=== PATIENT | male | born 1995 | race Caucasian/White ===

== ENCOUNTER 2020-05-12 11:19 | Outpatient (CLI) | payer OTHER ==
[2020-05-12 12:29] LABS: BASOPHILS # (AUTO) 0.1 K/uL (0.0-0.2); BASOPHILS % (AUTO) 0.6 % (0.0-2.0); EOSINOPHILS # (AUTO) 0.4 K/uL (0.0-0.4); EOSINOPHILS % (AUTO) 3.6 % (0.0-4.0); HEMATOCRIT 52.5 % (36-54); HEMOGLOBIN 18.3 g/dL (14.0-18.0); LYMPHOCYTES # (AUTO) 2.2 K/uL (1.0-5.5); LYMPHOCYTES % (AUTO) 20.6 % (20.5-51.5); MEAN CORPUSCULAR HEMOGLOBIN 31 pg (27-31); MEAN CORPUSCULAR HGB CONC 35 % (32-36); MEAN CORPUSCULAR VOLUME 88 fL (79.0-98.0); MONOCYTES # (AUTO) 0.5 K/uL (0.0-1.0); MONOCYTES % (AUTO) 4.9 % (1.7-9.3); NEUTROPHILS # (AUTO) 7.6 K/uL (1.8-7.7); NEUTROPHILS % (AUTO) 70.3 % (40.0-70.0); PLATELET COUNT (AUTO) 238 K/uL (130-430); RED BLOOD CELL COUNT(AUTO) 5.96 MIL/uL (4.2-6.2); RED CELL DISTRIBUTION WIDTH 13.1 % (9.0-15.0); WHITE BLOOD COUNT (AUTO) 10.8 K/uL (4.8-10.8)
[2020-05-12 13:05] LABS: ALBUMIN 4.6 g/dL (3.4-4.8); CALCIUM 9.7 mg/dL (8.4-11.0); CREATININE 1.08 mg/dL (0.55-1.30); POTASSIUM 4.1 mmol/L (3.5-5.1); THYROID STIMULATING HORMONE 1.26 uIu/mL (0.34-4.82); TOTAL BILIRUBIN 0.6 mg/dL (0.0-1.0)
[2020-05-13 08:06] LABS: HEMOGLOBIN A1C 5.3 % (4.8-5.6)
== END 2020-05-12 20:10 | disposition home or self-care (01) ==
LOC: SLB 11:19
PROVIDERS: ATTEND Internal Medicine
DX: Z00.00 Encounter for general adult medical examination without abnormal findings (principal)
CPT/HCPCS: 36415; 80053; 80061; 82306; 83036; 84443-TC; 85025

== ENCOUNTER 2020-08-08 10:49 | Emergency (ER) | payer OTHER, SELFPAY ==
[~2020-08-08] VITALS: Ht 182.9 cm; Wt 104.3 kg
[2020-08-08 11:08] VITALS: BP_SYST 137
--- NOTE | 2020-08-08 11:13 | NUR ---
Patient triaged and placed in ER tent. VSS and patient appears in no acute distress at this time. Awaiting available bed, and MD notified of need for MSE.
--- NOTE | 2020-08-08 11:14 | NUR ---
Patient came from home complaining of headache,abdominal pain,diarrhea,dry cough,and SOB. Vitals are WNL, when asked for painscale he reported none.
--- NOTE | 2020-08-08 11:35 | NUR ---
ER Dr. Lance at bedside examining patient.
[2020-08-08 14:00] VITALS: BP_SYST 137
--- NOTE | 2020-08-08 14:00 | NUR ---
Patient given written and verbal discharge instructions and verbalizes understanding. ER MD discussed with patient the results and treatment provided. Patient in stable condition. ID arm band removed. Patient educated on pain management and to follow up with PMD. Pain Scale 0/10. Opportunity for questions provided and answered. Medication side effect fact sheet provided.
== END 2020-08-08 14:00 | disposition home or self-care (01) ==
LOC: SED 10:49
DX: R05 Cough (principal); R51.9 Headache, unspecified; Z20.828 Contact with and (suspected) exposure to other viral communicable diseases
CPT/HCPCS: 71045; 99284; U0003; C9803

== ENCOUNTER 2021-03-31 12:24 | Outpatient (CLI) | payer OTHER ==
[2021-03-31 12:55] LABS: BILIRUBIN,URINE NEGATIVE (NEGATIVE); BLOOD, URINE NEGATIVE (NEGATIVE); CLARITY/URINE CLEAR (CLEAR); COLOR,URINE YELLOW (YELLOW); GLUCOSE,URINE NEGATIVE (NEGATIVE); KETONES,URINE NEGATIVE (NEGATIVE); LEUKOCYTE ESTERASE ,URINE NEGATIVE (NEGATIVE); NITRITE, URINE NEGATIVE (NEGATIVE); PROTEIN URINE NEGATIVE (NEGATIVE); UROBILINOGEN,URINE 0.2 (0.2-1.0)
[2021-03-31 12:57] LABS: BASOPHILS # (AUTO) 0.1 K/uL (0.0-0.2); BASOPHILS % (AUTO) 0.6 % (0.0-2.0); EOSINOPHILS # (AUTO) 0.4 K/uL (0.0-0.4); EOSINOPHILS % (AUTO) 4.2 % (0.0-4.0); HEMATOCRIT 46.8 % (36-54); HEMOGLOBIN 16.2 g/dL (14.0-18.0); LYMPHOCYTES # (AUTO) 1.9 K/uL (1.0-5.5); LYMPHOCYTES % (AUTO) 21.6 % (20.5-51.5); MEAN CORPUSCULAR HEMOGLOBIN 31 pg (27-31); MEAN CORPUSCULAR HGB CONC 35 % (32-36); MEAN CORPUSCULAR VOLUME 90 fL (79.0-98.0); MONOCYTES # (AUTO) 0.4 K/uL (0.0-1.0); MONOCYTES % (AUTO) 4.6 % (1.7-9.3); NEUTROPHILS # (AUTO) 6.1 K/uL (1.8-7.7); PLATELET COUNT (AUTO) 196 K/uL (130-430); RED BLOOD CELL COUNT(AUTO) 5.23 MIL/uL (4.2-6.2); RED CELL DISTRIBUTION WIDTH 13.6 % (9.0-15.0); WHITE BLOOD COUNT (AUTO) 8.8 K/uL (4.8-10.8)
[2021-03-31 13:43] LABS: CALCIUM 9.1 mg/dL (8.4-11.0); CREATININE 1.07 mg/dL (0.55-1.30); POTASSIUM 4.9 mmol/L (3.5-5.1); TOTAL BILIRUBIN 0.5 mg/dL (0.0-1.0)
[2021-03-31 13:44] LABS: ALBUMIN 4.1 g/dL (3.4-4.8); THYROID STIMULATING HORMONE 0.79 uIu/mL (0.36-3.74)
[2021-03-31 13:56] LABS: URIC ACID 5.3 mg/dL (2.4-7.0)
[2021-04-01 03:06] LABS: HEMOGLOBIN A1C 5.3 % (4.8-5.6)
== END 2021-03-31 21:00 | disposition home or self-care (01) ==
LOC: SLB 12:24
PROVIDERS: ATTEND Internal Medicine
DX: M10.9 Gout, unspecified (principal); R10.9 Unspecified abdominal pain; M19.90 Unspecified osteoarthritis, unspecified site
CPT/HCPCS: 36415; 73564; 80053; 80061; 81003; 82306; 83036; 83540; 83550; 83690; 84443; 84550; 85025

== ENCOUNTER 2021-04-04 11:15 | Outpatient (CLI) | payer OTHER | END 2021-04-05 07:46 | disposition home or self-care (01) | LOC: SUS 11:15 | PROVIDERS: ATTEND Internal Medicine | DX: R10.9 Unspecified abdominal pain (principal) | CPT/HCPCS: 76700-TC ==